=== PATIENT | male | born 1940 | race Caucasian/White ===

== ENCOUNTER → 2016-06-22 | Outpatient (CLI) | payer MEDICARE, SELFPAY ==
[~2016-06-22] MED LIST: AGGRENOX 25 MG1 EACH PO; DIABETA 5 MG TAB5 MG PO; FENOFIBRATE134 MG PO; LEVOTHYROXINE75 MCG PO; NORVASC 5 MG TAB5 MG PO; PROTONIX 40 MG40 M1 PO; VICTOZA 1818 MG/3 ML SC; VIT D
== END ==
LOC: KOH-I 15:37
DX: J40 Bronchitis, not specified as acute or chronic (principal); Z88.8 Allergy status to other drugs, medicaments and biological substances
CPT/HCPCS: 71020

== ENCOUNTER → 2016-06-24 | Outpatient (CLI) | payer MEDICARE, SELFPAY ==
[2016-06-24 10:07] LABS: RED BLOOD COUNT 2.44 M/UL (4.20-5.50); WHITE BLOOD COUNT 6.8 K/UL (4.5-11.0)
[2016-06-24 10:17] LABS: HEMOGLOBIN 6.9 gm/dl (14.0-17.5)
== END ==
LOC: OPSV 06-23 08:00
PROVIDERS: Internal Medicine Nephrology
DX: N18.3 Chronic kidney disease, stage 3 (moderate) (principal); D63.1 Anemia in chronic kidney disease; Z88.8 Allergy status to other drugs, medicaments and biological substances
CPT/HCPCS: 36415; 36430; 80048; 82728; 83540; 83550; 85027; 86850; 86900; 86901; 86920; J7050; P9016

== ENCOUNTER → 2016-06-29 | Outpatient (CLI) | payer MEDICARE, SELFPAY ==
[~2016-06-29] VITALS: Ht 180.3 cm; Wt 115.7 kg
[2016-06-29 08:25] LABS: HEMOGLOBIN 7.7 gm/dl (14.0-17.5); RED BLOOD COUNT 2.73 M/UL (4.20-5.50); WHITE BLOOD COUNT 6.2 K/UL (4.5-11.0)
== END ==
LOC: OPSV 08:00
PROVIDERS: Internal Medicine Nephrology
DX: N18.3 Chronic kidney disease, stage 3 (moderate) (principal); D63.1 Anemia in chronic kidney disease; D50.9 Iron deficiency anemia, unspecified; Z88.8 Allergy status to other drugs, medicaments and biological substances
CPT/HCPCS: 36415; 85027; 96365; 96366; J1756; J7030

== ENCOUNTER → 2016-07-07 | Outpatient (CLI) | payer MEDICARE, SELFPAY ==
[~2016-07-07] VITALS: Ht 180.3 cm; Wt 93.0 kg
[2016-07-07 08:17] LABS: HEMOGLOBIN 7.5 gm/dl (14.0-17.5); RED BLOOD COUNT 2.66 M/UL (4.20-5.50)
== END ==
LOC: OPSV 07:46
PROVIDERS: Internal Medicine Nephrology
DX: D50.9 Iron deficiency anemia, unspecified (principal); N18.3 Chronic kidney disease, stage 3 (moderate); D63.1 Anemia in chronic kidney disease
CPT/HCPCS: 36415; 80048; 82728; 83540; 83550; 85027; 96365; 96366; J1756; J7050

== ENCOUNTER → 2016-07-14 | Outpatient (CLI) | payer MEDICARE, SELFPAY ==
[~2016-07-14] VITALS: Ht 180.3 cm; Wt 93.0 kg
[2016-07-14 08:37] LABS: HEMOGLOBIN 7.3 gm/dl (14.0-17.5); RED BLOOD COUNT 2.56 M/UL (4.20-5.50); WHITE BLOOD COUNT 5.3 K/UL (4.5-11.0)
== END ==
LOC: OPSV 08:02
PROVIDERS: Internal Medicine Nephrology
DX: D50.9 Iron deficiency anemia, unspecified (principal); D63.1 Anemia in chronic kidney disease; N18.3 Chronic kidney disease, stage 3 (moderate)
CPT/HCPCS: 36415; 36430; 85027; 86850; 86900; 86901; 86920; J1756; J7050; P9016

== ENCOUNTER → 2016-07-21 | Outpatient (CLI) | payer MEDICARE, SELFPAY ==
[~2016-07-21] VITALS: Ht 180.3 cm; Wt 115.7 kg
[2016-07-21 08:23] LABS: HEMOGLOBIN 8.5 gm/dl (14.0-17.5); RED BLOOD COUNT 2.95 M/UL (4.20-5.50); WHITE BLOOD COUNT 5.5 K/UL (4.5-11.0)
== END ==
LOC: OPSV 07:47
PROVIDERS: Internal Medicine
DX: E11.9 Type 2 diabetes mellitus without complications (principal); D50.0 Iron deficiency anemia secondary to blood loss (chronic); R79.89 Other specified abnormal findings of blood chemistry
CPT/HCPCS: 36415; 80048; 83036; 85025; 96365; 96366; J1756; J7030

== ENCOUNTER → 2016-07-28 | Outpatient (CLI) | payer MEDICARE, SELFPAY ==
[~2016-07-28] VITALS: Ht 180.3 cm; Wt 115.7 kg
[2016-07-28 08:53] LABS: HEMOGLOBIN 9.7 gm/dl (14.0-17.5); RED BLOOD COUNT 3.33 M/UL (4.20-5.50); WHITE BLOOD COUNT 6.2 K/UL (4.5-11.0)
== END ==
LOC: OPSV 08:00
PROVIDERS: Internal Medicine Nephrology
DX: N18.3 Chronic kidney disease, stage 3 (moderate) (principal); D63.1 Anemia in chronic kidney disease; D50.9 Iron deficiency anemia, unspecified
CPT/HCPCS: 36415; 80048; 82728; 83540; 83550; 85027; 86039; 86225; 96365; 96366; J1756; J7030

== ENCOUNTER → 2016-08-04 | Outpatient (CLI) | payer MEDICARE, SELFPAY ==
[~2016-08-04] VITALS: Ht 180.3 cm; Wt 93.0 kg
[2016-08-04 08:09] LABS: HEMOGLOBIN 9.1 gm/dl (14.0-17.5); RED BLOOD COUNT 3.18 M/UL (4.20-5.50); WHITE BLOOD COUNT 5.6 K/UL (4.5-11.0)
== END ==
LOC: OPSV 07:20
PROVIDERS: Internal Medicine Nephrology
DX: N18.3 Chronic kidney disease, stage 3 (moderate) (principal); D63.1 Anemia in chronic kidney disease; D50.9 Iron deficiency anemia, unspecified
CPT/HCPCS: 85027; 96365; 96366; J1756; J7050

== ENCOUNTER → 2016-08-11 | Outpatient (CLI) | payer MEDICARE, SELFPAY ==
[~2016-08-11] VITALS: Ht 180.3 cm; Wt 115.7 kg
[2016-08-11 08:41] LABS: HEMOGLOBIN 10.3 gm/dl (14.0-17.5); RED BLOOD COUNT 3.5 M/UL (4.20-5.50); WHITE BLOOD COUNT 6.3 K/UL (4.5-11.0)
== END ==
LOC: OPSV 08:04
PROVIDERS: Internal Medicine Nephrology
DX: N18.3 Chronic kidney disease, stage 3 (moderate) (principal); D63.1 Anemia in chronic kidney disease; D50.9 Iron deficiency anemia, unspecified
CPT/HCPCS: 36415; 80048; 82728; 83540; 83550; 85027; 86160; 96365; 96366; J1756; J7030

== ENCOUNTER → 2016-08-18 | Outpatient (CLI) | payer MEDICARE, SELFPAY ==
[~2016-08-18] VITALS: Ht 180.3 cm; Wt 115.7 kg
== END ==
LOC: OPSV 08:00
DX: N18.3 Chronic kidney disease, stage 3 (moderate) (principal); D63.1 Anemia in chronic kidney disease; D50.9 Iron deficiency anemia, unspecified
CPT/HCPCS: 96365; 96366; J1756; J7030

== ENCOUNTER → 2016-08-25 | Outpatient (CLI) | payer MEDICARE ==
[2016-08-25 08:17] LABS: HEMOGLOBIN 12.8 gm/dl (14.0-17.5); RED BLOOD COUNT 4.29 M/UL (4.20-5.50)
== END ==
LOC: OPSV 07:56
PROVIDERS: Internal Medicine Nephrology
DX: D64.9 Anemia, unspecified (principal)
CPT/HCPCS: 36415; 85027

== ENCOUNTER → 2016-09-08 | Outpatient (CLI) | payer MEDICARE ==
[2016-09-08 08:45] LABS: RED BLOOD COUNT 4.38 M/UL (4.20-5.50)
== END ==
LOC: OPSV 08:00
PROVIDERS: Internal Medicine Nephrology
DX: N18.3 Chronic kidney disease, stage 3 (moderate) (principal); D63.1 Anemia in chronic kidney disease
CPT/HCPCS: 36415; 80048; 82728; 83540; 83550; 85027

== ENCOUNTER → 2016-09-22 | Outpatient (CLI) | payer MEDICARE ==
[2016-09-22 08:30] LABS: HEMOGLOBIN 13.5 gm/dl (14.0-17.5); RED BLOOD COUNT 4.51 M/UL (4.20-5.50); WHITE BLOOD COUNT 5.5 K/UL (4.5-11.0)
== END ==
LOC: OPSV 08:00
PROVIDERS: Internal Medicine Nephrology
DX: N18.3 Chronic kidney disease, stage 3 (moderate) (principal); D63.1 Anemia in chronic kidney disease; D50.9 Iron deficiency anemia, unspecified
CPT/HCPCS: 36415; 85027

== ENCOUNTER → 2016-09-28 | Outpatient (CLI) | payer MEDICARE, OTHER | LOC: US 08:10 → LAB 08:10 → US 09:00 | DX: Z11.59 Encounter for screening for other viral diseases (principal); K31.819 Angiodysplasia of stomach and duodenum without bleeding; D50.0 Iron deficiency anemia secondary to blood loss (chronic); R53.83 Other fatigue; R16.0 Hepatomegaly, not elsewhere classified | CPT/HCPCS: 36415; 76705; 80074; 80076 ==

== ENCOUNTER → 2016-10-06 | Outpatient (CLI) | payer MEDICARE, OTHER ==
[~2016-10-06] VITALS: Ht 180.3 cm; Wt 115.7 kg
[2016-10-06 07:57] LABS: HEMOGLOBIN 13.3 gm/dl (14.0-17.5); RED BLOOD COUNT 4.5 M/UL (4.20-5.50); WHITE BLOOD COUNT 6.1 K/UL (4.5-11.0)
== END ==
LOC: OPSV 07:24
PROVIDERS: Internal Medicine Nephrology
DX: N18.3 Chronic kidney disease, stage 3 (moderate) (principal); D50.9 Iron deficiency anemia, unspecified
CPT/HCPCS: 36415; 80048; 82728; 83540; 83550; 85027; 96365; 96366; J1756; J7050

== ENCOUNTER → 2016-10-11 | Outpatient (CLI) | payer MEDICARE | LOC: LAB 16:12 | DX: E11.65 Type 2 diabetes mellitus with hyperglycemia (principal) | CPT/HCPCS: 36415; 83036 ==

== ENCOUNTER → 2016-10-13 | Outpatient (CLI) | payer MEDICARE, OTHER ==
[~2016-10-13] VITALS: Ht 180.3 cm; Wt 93.0 kg
== END ==
LOC: OPSV 07:47
DX: N18.3 Chronic kidney disease, stage 3 (moderate) (principal); D50.9 Iron deficiency anemia, unspecified
CPT/HCPCS: 96365; 96366; J1756; J7030

== ENCOUNTER → 2020-04-20 | Outpatient (CLI) | payer MEDICARE, OTHER ==
[~2020-04-20] VITALS: Ht 180.3 cm; Wt 108.9 kg
[~2020-04-20] MED LIST changes: +COLACE 100MG C100 MG PO; +CYANOCOBAL1000 MCG/1 INJ; +ELIQUIS2.5 MG PO; +FEOSOL325 MG PO; +GLUCOTROL XL 5 M5 MG PO; +LIVALO2 MG PO; +NORCO 5-325 TA1 EACH PO; +PRAVACHOL20 MG PO; +TOUJEO MAX300 UNIT/1 SQ; +TRILIPIX135 MG PO; +VITAMIN C500 M4 PO; +VITAMIN D400 UNI2 PO; +toujeo
[2020-04-20 07:39] LABS: HEMOGLOBIN 7.5 gm/dl (14.0-17.5); RED BLOOD COUNT 3.33 M/UL (4.20-5.50); WHITE BLOOD COUNT 5.4 K/UL (4.5-11.0)
== END ==
LOC: OPSV 06:55
PROVIDERS: Internal Medicine Nephrology
DX: N18.9 Chronic kidney disease, unspecified (principal); D63.1 Anemia in chronic kidney disease
CPT/HCPCS: 36415; 82270; 85027; 96365; J1439; J7030

== ENCOUNTER → 2020-04-27 | Outpatient (CLI) | payer MEDICARE, OTHER ==
[~2020-04-27] VITALS: Ht 180.3 cm; Wt 108.9 kg
[2020-04-27 08:15] LABS: HEMOGLOBIN 8.3 gm/dl (14.0-17.5); RED BLOOD COUNT 3.31 M/UL (4.20-5.50); WHITE BLOOD COUNT 4.5 K/UL (4.5-11.0)
== END ==
LOC: OPSV 07:24
PROVIDERS: Internal Medicine Nephrology
DX: N18.30 Chronic kidney disease, stage 3 unspecified (principal); D63.1 Anemia in chronic kidney disease
CPT/HCPCS: 36415; 80048; 82728; 83540; 83550; 85027; 96365; J1439

== ENCOUNTER → 2020-05-07 | Outpatient (CLI) | payer MEDICARE, OTHER ==
[~2020-05-07] VITALS: Ht 180.3 cm; Wt 108.9 kg
[2020-05-07 07:49] LABS: HEMOGLOBIN 9.5 gm/dl (14.0-17.5); RED BLOOD COUNT 3.54 M/UL (4.20-5.50); WHITE BLOOD COUNT 5.4 K/UL (4.5-11.0)
== END ==
LOC: OPSV 07:00
PROVIDERS: Internal Medicine Nephrology
DX: N18.30 Chronic kidney disease, stage 3 unspecified (principal); D63.1 Anemia in chronic kidney disease
CPT/HCPCS: 36415; 85027; 96365; J1439; J7030

== ENCOUNTER → 2020-05-22 | Outpatient (CLI) | payer MEDICARE, OTHER ==
[~2020-05-22] VITALS: Ht 180.3 cm; Wt 108.9 kg
== END ==
LOC: OPSV 05-21 07:00
DX: D50.9 Iron deficiency anemia, unspecified (principal)
CPT/HCPCS: 96365; J1439; J7030

== ENCOUNTER → 2020-05-26 | Outpatient (CLI) | payer MEDICARE, OTHER ==
[2020-05-26 10:13] LABS: RED BLOOD COUNT 3.77 M/UL (4.20-5.50); WHITE BLOOD COUNT 5.9 K/UL (4.5-11.0)
== END ==
LOC: OPSV 08:00
PROVIDERS: Internal Medicine
DX: N18.30 Chronic kidney disease, stage 3 unspecified (principal); D63.1 Anemia in chronic kidney disease
CPT/HCPCS: 36415; 80048; 82728; 83540; 83550; 85027

== ENCOUNTER → 2020-06-22 | Outpatient (CLI) | payer MEDICARE, OTHER ==
[~2020-06-22] VITALS: Ht 180.3 cm; Wt 108.9 kg
[2020-06-22 09:23] LABS: HEMOGLOBIN 10.1 gm/dl (14.0-17.5); RED BLOOD COUNT 3.45 M/UL (4.20-5.50); WHITE BLOOD COUNT 5.1 K/UL (4.5-11.0)
== END ==
LOC: OPSV 08:00
PROVIDERS: Internal Medicine Nephrology
DX: N18.30 Chronic kidney disease, stage 3 unspecified (principal); D63.1 Anemia in chronic kidney disease
CPT/HCPCS: 36415; 80048; 82728; 83540; 83550; 85027; 96365; J1439; J7030

== ENCOUNTER → 2020-07-06 | Outpatient (CLI) | payer MEDICARE, OTHER ==
[2020-07-06 09:41] LABS: HEMOGLOBIN 10.9 gm/dl (14.0-17.5); RED BLOOD COUNT 3.57 M/UL (4.20-5.50); WHITE BLOOD COUNT 4.7 K/UL (4.5-11.0)
== END ==
LOC: OPSV 09:00
PROVIDERS: Internal Medicine Nephrology
DX: N18.30 Chronic kidney disease, stage 3 unspecified (principal); D63.1 Anemia in chronic kidney disease
CPT/HCPCS: 36415; 85027

== ENCOUNTER → 2020-07-21 | Outpatient (CLI) | payer MEDICARE, OTHER ==
[2020-07-21 08:22] LABS: RED BLOOD COUNT 3.58 M/UL (4.20-5.50); WHITE BLOOD COUNT 4.1 K/UL (4.5-11.0)
== END ==
LOC: OPSV 07:00
PROVIDERS: Internal Medicine Nephrology
DX: N18.30 Chronic kidney disease, stage 3 unspecified (principal); N18.9 Chronic kidney disease, unspecified
CPT/HCPCS: 36415; 80048; 82728; 83540; 83550; 85027

== ENCOUNTER → 2020-08-06 | Outpatient (CLI) | payer MEDICARE, OTHER ==
[2020-08-06 08:50] LABS: HEMOGLOBIN 10.9 gm/dl (14.0-17.5); RED BLOOD COUNT 3.59 M/UL (4.20-5.50); WHITE BLOOD COUNT 5.6 K/UL (4.5-11.0)
== END ==
LOC: OPSV 08:00
PROVIDERS: Internal Medicine Nephrology
DX: N18.30 Chronic kidney disease, stage 3 unspecified (principal); D63.1 Anemia in chronic kidney disease
CPT/HCPCS: 36415; 85027

== ENCOUNTER → 2020-08-21 | Outpatient (CLI) | payer MEDICARE, OTHER | LOC: KOH-I 15:59 | DX: M25.551 Pain in right hip (principal); W19.XXXA Unspecified fall, initial encounter; M53.3 Sacrococcygeal disorders, not elsewhere classified | CPT/HCPCS: 73502 ==

== ENCOUNTER → 2020-08-25 | Outpatient (CLI) | payer MEDICARE, OTHER ==
[2020-08-25 09:56] LABS: HEMOGLOBIN 10.3 gm/dl (14.0-17.5); RED BLOOD COUNT 3.46 M/UL (4.20-5.50); WHITE BLOOD COUNT 5.7 K/UL (4.5-11.0)
== END ==
LOC: OPSV 09:16
PROVIDERS: Internal Medicine Nephrology
DX: N18.30 Chronic kidney disease, stage 3 unspecified (principal); D63.1 Anemia in chronic kidney disease
CPT/HCPCS: 36415; 80048; 82728; 83540; 83550; 85027; 96365; J1439

== ENCOUNTER → 2020-09-07 | Outpatient (CLI) | payer MEDICARE, OTHER ==
[2020-09-07 09:41] LABS: HEMOGLOBIN 10.3 gm/dl (14.0-17.5); RED BLOOD COUNT 3.45 M/UL (4.20-5.50); WHITE BLOOD COUNT 5.5 K/UL (4.5-11.0)
== END ==
LOC: OPSV 09:00
PROVIDERS: Internal Medicine Nephrology
DX: N18.30 Chronic kidney disease, stage 3 unspecified (principal); D63.1 Anemia in chronic kidney disease
CPT/HCPCS: 36415; 85027

== ENCOUNTER → 2020-09-25 | Outpatient (CLI) | payer MEDICARE, OTHER ==
[~2020-09-25] VITALS: Ht 180.3 cm; Wt 108.9 kg
[2020-09-25 07:54] LABS: HEMOGLOBIN 9.1 gm/dl (14.0-17.5); RED BLOOD COUNT 3.12 M/UL (4.20-5.50); WHITE BLOOD COUNT 4.9 K/UL (4.5-11.0)
== END ==
LOC: OPSV 07:00
PROVIDERS: Internal Medicine Nephrology
DX: N18.30 Chronic kidney disease, stage 3 unspecified (principal); D63.1 Anemia in chronic kidney disease
CPT/HCPCS: 36415; 80048; 82728; 83540; 83550; 85027; 96365; J1439

== ENCOUNTER → 2020-10-02 | Outpatient (CLI) | payer MEDICARE, OTHER ==
[~2020-10-02] VITALS: Ht 180.3 cm; Wt 108.9 kg
== END ==
LOC: OPSV 09:00
DX: N18.30 Chronic kidney disease, stage 3 unspecified (principal); D63.1 Anemia in chronic kidney disease
CPT/HCPCS: 96372; Q5105

== ENCOUNTER → 2020-10-09 | Outpatient (CLI) | payer MEDICARE, OTHER ==
[2020-10-09 09:29] LABS: HEMOGLOBIN 10.1 gm/dl (14.0-17.5); RED BLOOD COUNT 3.36 M/UL (4.20-5.50); WHITE BLOOD COUNT 5.5 K/UL (4.5-11.0)
== END ==
LOC: OPSV 09:00
PROVIDERS: Internal Medicine Nephrology
DX: N18.30 Chronic kidney disease, stage 3 unspecified (principal); D63.1 Anemia in chronic kidney disease
CPT/HCPCS: 36415; 85027

== ENCOUNTER → 2020-10-22 | Outpatient (CLI) | payer MEDICARE, OTHER ==
[~2020-10-22] VITALS: Ht 180.3 cm; Wt 108.9 kg
[2020-10-22 09:50] LABS: HEMOGLOBIN 10.5 gm/dl (14.0-17.5); RED BLOOD COUNT 3.59 M/UL (4.20-5.50); WHITE BLOOD COUNT 9.7 K/UL (4.5-11.0)
== END ==
LOC: OPSV 08:00
PROVIDERS: Internal Medicine Nephrology
DX: N18.30 Chronic kidney disease, stage 3 unspecified (principal); D63.1 Anemia in chronic kidney disease
CPT/HCPCS: 36415; 80048; 82728; 83540; 83550; 85027; 96365; J1439

== ENCOUNTER → 2020-11-16 | Outpatient (CLI) | payer MEDICARE, OTHER ==
[~2020-11-16] VITALS: Ht 180.3 cm; Wt 108.9 kg
[2020-11-16 07:59] LABS: HEMOGLOBIN 10.8 gm/dl (14.0-17.5); RED BLOOD COUNT 3.78 M/UL (4.20-5.50); WHITE BLOOD COUNT 6.1 K/UL (4.5-11.0)
== END ==
LOC: OPSV 07:00
PROVIDERS: Internal Medicine Nephrology
DX: N18.30 Chronic kidney disease, stage 3 unspecified (principal); D63.1 Anemia in chronic kidney disease
CPT/HCPCS: 36415; 80048; 82728; 83540; 83550; 85027; 96365; J1439; J7030

== ENCOUNTER → 2020-12-07 | Outpatient (CLI) | payer MEDICARE, OTHER ==
[2020-12-07 10:36] LABS: HEMOGLOBIN 10.7 gm/dl (14.0-17.5); RED BLOOD COUNT 3.6 M/UL (4.20-5.50); WHITE BLOOD COUNT 5.6 K/UL (4.5-11.0)
== END ==
LOC: OPSV 09:50
PROVIDERS: Internal Medicine Nephrology
DX: N18.30 Chronic kidney disease, stage 3 unspecified (principal); D63.1 Anemia in chronic kidney disease
CPT/HCPCS: 36415; 85027

== ENCOUNTER → 2020-12-23 | Outpatient (CLI) | payer MEDICARE, OTHER ==
[~2020-12-23] VITALS: Ht 180.3 cm; Wt 108.9 kg
[2020-12-23 10:51] LABS: HEMOGLOBIN 10.7 gm/dl (14.0-17.5); RED BLOOD COUNT 3.63 M/UL (4.20-5.50); WHITE BLOOD COUNT 8.8 K/UL (4.5-11.0)
== END ==
LOC: OPSV 10:00
PROVIDERS: Internal Medicine Nephrology
DX: N18.30 Chronic kidney disease, stage 3 unspecified (principal); D63.1 Anemia in chronic kidney disease
CPT/HCPCS: 36415; 80048; 82728; 83540; 83550; 85027; 96365; J1439; J7030

== ENCOUNTER → 2021-01-06 | Outpatient (CLI) | payer MEDICARE, OTHER ==
[~2021-01-06] VITALS: Ht 180.3 cm; Wt 108.9 kg
[2021-01-06 10:32] LABS: HEMOGLOBIN 8.7 gm/dl (14.0-17.5); RED BLOOD COUNT 3.09 M/UL (4.20-5.50); WHITE BLOOD COUNT 6.4 K/UL (4.5-11.0)
== END ==
LOC: OPSV 10:00
PROVIDERS: Internal Medicine Nephrology
DX: N18.30 Chronic kidney disease, stage 3 unspecified (principal); D63.1 Anemia in chronic kidney disease
CPT/HCPCS: 36415; 85027; 96372; Q5106

== ENCOUNTER → 2021-01-20 | Outpatient (CLI) | payer MEDICARE, OTHER ==
[2021-01-20 12:28] LABS: HEMOGLOBIN 7.1 gm/dl (14.0-17.5); RED BLOOD COUNT 2.45 M/UL (4.20-5.50); WHITE BLOOD COUNT 6.8 K/UL (4.5-11.0)
== END ==
LOC: LAB 11:23
PROVIDERS: Nurse Practitioner Family
DX: N17.9 Acute kidney failure, unspecified (principal); D50.0 Iron deficiency anemia secondary to blood loss (chronic); D51.0 Vitamin B12 deficiency anemia due to intrinsic factor deficiency; I10 Essential (primary) hypertension
CPT/HCPCS: 36415; 80053; 85025

== ENCOUNTER → 2021-01-21 | Outpatient (CLI) | payer MEDICARE, OTHER | LOC: OPSV 16:23 → LAB 16:23 | DX: D50.0 Iron deficiency anemia secondary to blood loss (chronic) (principal) | CPT/HCPCS: 86850; 86900; 86901; 86920 ==

== ENCOUNTER → 2021-01-22 | Outpatient (CLI) | payer MEDICARE, OTHER | LOC: OPSV 07:37 | DX: D50.0 Iron deficiency anemia secondary to blood loss (chronic) (principal); R50.9 Fever, unspecified | CPT/HCPCS: 36415; 36430; 81001 ==

== ENCOUNTER → 2021-02-04 | Outpatient (CLI) | payer MEDICARE, OTHER ==
[~2021-02-04] VITALS: Ht 180.3 cm; Wt 108.9 kg
[~2021-02-04] MED LIST changes: +ATORVASTATIN CA10 MG PO; +CIPROFLOXACIN250 MG PO; +DRISDOL1250 MCG PO; +MUPIROCIN22 GM TOP; +PREDNISONE20 MG PO; +PRESERVISION A1 EAC2 PO
[2021-02-04 10:33] LABS: HEMOGLOBIN 7.4 gm/dl (14.0-17.5); RED BLOOD COUNT 2.63 M/UL (4.20-5.50)
== END ==
LOC: OPSV 09:00
PROVIDERS: Internal Medicine Nephrology
DX: N18.9 Chronic kidney disease, unspecified (principal); D63.1 Anemia in chronic kidney disease; N17.9 Acute kidney failure, unspecified
CPT/HCPCS: 36415; 80048; 82728; 83540; 83550; 85027; 96365; J1756

== ENCOUNTER 2021-02-09 12:16 | Outpatient (CLI) | payer MEDICARE, OTHER ==
[~2021-02-09] VITALS: Ht 180.3 cm; Wt 108.9 kg
[~2021-02-09 12:16] MED LIST changes: -ATORVASTATIN CA10 MG PO; -CIPROFLOXACIN250 MG PO; -MUPIROCIN22 GM TOP; -PREDNISONE20 MG PO; -PRESERVISION A1 EAC2 PO
[2021-02-09] MEDS ORDERED: CIPROFLOXACIN250 MG PO (18:58)
[2021-02-09] MEDS ORDERED: MUPIROCIN22 GM TOP (18:59)
[2021-02-09] MEDS ORDERED: PREDNISONE20 MG PO (19:00)
[2021-02-09] MEDS ORDERED: ATORVASTATIN CA10 MG PO (19:00)
[2021-02-09] MEDS ORDERED: PRESERVISION A1 EAC2 PO (19:00)
== END 2021-02-09 20:11 | disposition home or self-care (01) ==
LOC: OPSV 12:16 → MED SURG 4 16:18 → OPSV 20:11
DX: D50.0 Iron deficiency anemia secondary to blood loss (chronic) (principal); K92.1 Melena
CPT/HCPCS: 36415; 36430; 81001; 85025; 86850; 86900; 86901; 86920; 87077; 87086; 87186; P9016

== ENCOUNTER → 2021-02-12 | Outpatient (CLI) | payer MEDICARE, OTHER ==
[~2021-02-12] VITALS: Ht 180.3 cm; Wt 108.9 kg
[~2021-02-12] MED LIST changes: +ATORVASTATIN CA10 MG PO; +CIPROFLOXACIN250 MG PO; +MUPIROCIN22 GM TOP; +PREDNISONE20 MG PO; +PRESERVISION A1 EAC2 PO
== END ==
LOC: OPSV 11:00
DX: N18.32 Chronic kidney disease, stage 3b (principal); D63.1 Anemia in chronic kidney disease; N17.9 Acute kidney failure, unspecified
CPT/HCPCS: 36415; 96366; J1756

== ENCOUNTER → 2021-02-19 | Outpatient (CLI) | payer MEDICARE, OTHER | LOC: OPSV 02-18 12:00 | DX: N18.9 Chronic kidney disease, unspecified (principal); D63.1 Anemia in chronic kidney disease | CPT/HCPCS: 96365; J1756 ==

== ENCOUNTER → 2021-02-22 | Outpatient (CLI) | payer MEDICARE, OTHER ==
[~2021-02-22] VITALS: Ht 180.3 cm; Wt 108.9 kg
[~2021-02-22] MED LIST changes: +CARAFATE 1 GM TA1 GM PO; +LIVALO4 MG PO
[2021-02-22 08:56] LABS: HEMOGLOBIN 7.8 gm/dl (14.0-17.5); RED BLOOD COUNT 2.76 M/UL (4.20-5.50); WHITE BLOOD COUNT 9.8 K/UL (4.5-11.0)
== END ==
LOC: OPSV 08:16
PROVIDERS: Internal Medicine Nephrology
DX: N18.9 Chronic kidney disease, unspecified (principal); D63.1 Anemia in chronic kidney disease; D50.0 Iron deficiency anemia secondary to blood loss (chronic)
CPT/HCPCS: 36415; 80048; 82728; 83540; 83550; 85027; 96365; J1756

== ENCOUNTER 2021-02-24 13:25 | Inpatient (IN) | payer MEDICARE, OTHER ==
[~2021-02-24] VITALS: Ht 180.3 cm; Wt 106.6 kg
[~2021-02-24 13:25] MED LIST changes: -CARAFATE 1 GM TA1 GM PO; -LIVALO4 MG PO
[2021-02-24] MEDS ORDERED: FENOFIBRATE134 MG PO (15:43)
[2021-02-24] MEDS ORDERED: CARAFATE 1 GM TA1 GM PO (15:43)
[2021-02-24 16:42] LABS: HEMOGLOBIN 7.7 gm/dl (14.0-17.5); RED BLOOD COUNT 2.74 M/UL (4.20-5.50); WHITE BLOOD COUNT 9.9 K/UL (4.5-11.0)
[2021-02-24] MEDS ORDERED: LIVALO4 MG PO (16:53)
[2021-02-25 08:00] LABS: WHITE BLOOD COUNT 7.7 K/UL (4.5-11.0)
[2021-02-25 08:08] LABS: HEMOGLOBIN 6.4 gm/dl (14.0-17.5); RED BLOOD COUNT 2.36 M/UL (4.20-5.50)
--- NOTE | 2021-02-25 08:36 | NUR ---
[facility] CALLED TO
[2021-02-25 19:47] LABS: HEMOGLOBIN 8.8 gm/dl (14.0-17.5)
[2021-02-26 08:35] LABS: HEMOGLOBIN 9.1 gm/dl (14.0-17.5); WHITE BLOOD COUNT 6.7 K/UL (4.5-11.0)
[2021-02-26 08:38] LABS: RED BLOOD COUNT 3.12 M/UL (4.20-5.50)
[2021-02-26 11:14] LABS: CREATININE, URINE 55.9 mg/dL (Not Estab.)
[2021-02-27 06:18] LABS: HEMOGLOBIN 7.7 gm/dl (14.0-17.5); WHITE BLOOD COUNT 5.6 K/UL (4.5-11.0)
[2021-02-27 06:29] LABS: RED BLOOD COUNT 2.73 M/UL (4.20-5.50)
[2021-02-27 10:13] LABS: CREATININE, URINE 45.2 mg/dL (Not Estab.)
[2021-02-28 08:32] LABS: HEMOGLOBIN 7.3 gm/dl (14.0-17.5); RED BLOOD COUNT 2.59 M/UL (4.20-5.50)
[2021-03-01 07:51] LABS: HEMOGLOBIN 8.2 gm/dl (14.0-17.5)
[2021-03-01 07:54] LABS: RED BLOOD COUNT 2.97 M/UL (4.20-5.50); WHITE BLOOD COUNT 6.5 K/UL (4.5-11.0)
[2021-03-02 07:11] LABS: RED BLOOD COUNT 2.82 M/UL (4.20-5.50)
[2021-03-03 06:59] LABS: HEMOGLOBIN 7.8 gm/dl (14.0-17.5); RED BLOOD COUNT 2.73 M/UL (4.20-5.50); WHITE BLOOD COUNT 5.8 K/UL (4.5-11.0)
== END 2021-03-03 13:37 | disposition home or self-care (01) | DRG 682 ==
LOC: MED SURG 4 13:25
PROVIDERS: Internal Medicine; Internal Medicine Nephrology; ADMIT Internal Medicine
PROC: 30233N1 Transfusion of Nonautologous Red Blood Cells into Peripheral Vein, Percutaneous Approach (ICD-10-PCS; principal; 2021-02-25)
DX: N17.9 Acute kidney failure, unspecified (principal); J18.9 Pneumonia, unspecified organism; E87.2 Acidosis; D62 Acute posthemorrhagic anemia; I12.9 Hypertensive chronic kidney disease with stage 1 through stage 4 chronic kidney disease, or unspecified chronic kidney disease; N13.6 Pyonephrosis; M34.9 Systemic sclerosis, unspecified; N18.30 Chronic kidney disease, stage 3 unspecified; E03.9 Hypothyroidism, unspecified; D63.1 Anemia in chronic kidney disease; K31.819 Angiodysplasia of stomach and duodenum without bleeding; D50.9 Iron deficiency anemia, unspecified; E11.22 Type 2 diabetes mellitus with diabetic chronic kidney disease; R53.81 Other malaise; Z79.899 Other long term (current) drug therapy
CPT/HCPCS: 36415; 36430; 70450; 71045; 71046; 76857; 80048; 80053; 80069; 81001; 82043; 82436; 82570; 82728; 82803; 82962; 83540; 83550; 84133; 84156; 84300; 84439; 84443; 85014; 85018; 85025; 85027; 85652; 86140; 86850; 86900; 86901; 86920; 87040; 87278; 89050; 94640; 94760; 96365; J0456; J0696; J1644; J1756; J7030; J7050; J7120; P9016; P9047; U0002

== ENCOUNTER 2021-03-05 13:46 | Emergency (ER) | payer MEDICARE, OTHER ==
[~2021-03-05 13:46] MED LIST changes: +CARAFATE 1 GM TA1 GM PO; +LIVALO4 MG PO
[2021-03-05 14:45] LABS: RED BLOOD COUNT 2.73 M/UL (4.20-5.50); WHITE BLOOD COUNT 5.2 K/UL (4.5-11.0)
== END 2021-03-05 15:40 | disposition home or self-care (01) ==
LOC: ER1 13:46
PROVIDERS: Preventive Medicine Occupational Medicine
DX: R53.83 Other fatigue (principal); E11.22 Type 2 diabetes mellitus with diabetic chronic kidney disease; N18.9 Chronic kidney disease, unspecified
CPT/HCPCS: 71045; 80053; 82550; 82553; 83690; 83874; 83880; 84484; 85025; 85652; 86140; 93005; 94664; 94760; 99285; J7030

== ENCOUNTER → 2021-03-08 | Outpatient (CLI) | payer MEDICARE, OTHER ==
[~2021-03-08] VITALS: Ht 180.3 cm; Wt 108.9 kg
== END ==
LOC: OPSV 10:55 → LAB 10:55
DX: N18.9 Chronic kidney disease, unspecified (principal); D63.1 Anemia in chronic kidney disease
CPT/HCPCS: 96365; J1756

== ENCOUNTER → 2021-03-11 | Outpatient (CLI) | payer MEDICARE, OTHER ==
[2021-03-11 12:49] LABS: HEMOGLOBIN 9.4 gm/dl (14.0-17.5); RED BLOOD COUNT 3.14 M/UL (4.20-5.50); WHITE BLOOD COUNT 6.2 K/UL (4.5-11.0)
== END ==
LOC: OPSV 08:00
PROVIDERS: Internal Medicine
DX: D50.0 Iron deficiency anemia secondary to blood loss (chronic) (principal)
CPT/HCPCS: 36415; 36430; 85027; J7050

== ENCOUNTER → 2021-03-15 | Outpatient (CLI) | payer MEDICARE, OTHER ==
[~2021-03-15] VITALS: Ht 180.3 cm; Wt 108.9 kg
== END ==
LOC: OPSV 11:37
DX: N18.9 Chronic kidney disease, unspecified (principal); D63.1 Anemia in chronic kidney disease; D50.0 Iron deficiency anemia secondary to blood loss (chronic)
CPT/HCPCS: 96365; J1756

== ENCOUNTER 2021-03-21 23:08 | Inpatient (IN) | payer MEDICARE, OTHER ==
[~2021-03-21] VITALS: Ht 180.3 cm; Wt 111.1 kg
[~2021-03-21 23:08] MED LIST changes: -VICTOZA 1818 MG/3 ML SC; +VICTOZA 1818 MG/3 ML SQ
[2021-03-22 00:58] LABS: HEMOGLOBIN 7.6 gm/dl (14.0-17.5); RED BLOOD COUNT 2.61 M/UL (4.20-5.50); WHITE BLOOD COUNT 7.1 K/UL (4.5-11.0)
[2021-03-22 01:19] LABS: BUN/CREATININE RATIO 18 (0-10)
[2021-03-22] MEDS ORDERED: CARAFATE1 GM PO (10:01)
[2021-03-22] MEDS ORDERED: MULTIVITAMIN1 EACH PO (10:02)
[2021-03-22] MEDS ORDERED: IPRAT-ALBUT 0.5-3 ML INH (10:02)
[2021-03-22] MEDS ORDERED: VITAMIN C250 MG PO (10:03)
[2021-03-22 13:17] LABS: HEMOGLOBIN 8.6 gm/dl (14.0-17.5); WHITE BLOOD COUNT 7.9 K/UL (4.5-11.0)
[2021-03-22 13:19] LABS: RED BLOOD COUNT 2.97 M/UL (4.20-5.50)
[2021-03-22] MEDS ORDERED: KENALOG CREAM 015 GM TOP (22:22)
--- NOTE | 2021-03-22 23:04 | NUR ---
DR. OLIVAS HAS A WRITTEN ORDER TO CONTINUE HOME MEDS PER THE LIST FROM HER OFFICE. BY THE TIME SHIFT CHANGE HER OFFICE WAS CLOSED. I HAVE LOOKED AT HIS OLD MED LIST AND COMPARED IT TO THE MED LIST THE GRANDDAUGHTER GAVE ME AND THERE ARE SOME MEDS NOT THE SAME. SINCE I CAN SEE THAT HIS NEB TREATMENTS WAS FILLED ON 03/05/[address] OLIVAS I AM GOING TO START THEM. HIS MED SCALE INSULIN, INVANZ, TYLENOL, AND FLUIDS, WELL HIS MORNING LABS ARE IN. THE DAYSHIFT WILL CALL SOON THE OFFICE OPENS IN THE MORNING TO GET THE CURRENT LIST OF MEDICATIONS. I CALLED HOUSE AND LET HER KNOW THE SITUATION.
[2021-03-23 07:02] LABS: RED BLOOD COUNT 2.86 M/UL (4.20-5.50); WHITE BLOOD COUNT 7.1 K/UL (4.5-11.0)
[2021-03-24 08:32] LABS: HEMOGLOBIN 8.4 gm/dl (14.0-17.5); RED BLOOD COUNT 2.95 M/UL (4.20-5.50); WHITE BLOOD COUNT 6.9 K/UL (4.5-11.0)
[2021-03-25 07:57] LABS: HEMOGLOBIN 8.3 gm/dl (14.0-17.5); WHITE BLOOD COUNT 5.8 K/UL (4.5-11.0)
[2021-03-26 06:01] LABS: HEMOGLOBIN 7.5 gm/dl (14.0-17.5); RED BLOOD COUNT 2.73 M/UL (4.20-5.50); WHITE BLOOD COUNT 5.7 K/UL (4.5-11.0)
--- NOTE | 2021-03-26 06:23 | NUR ---
hgb results 7.5. There is a written order to transfuse 1 unit if hgb is below 8. Will get consent ready to be signed, tubing ready and verify iv.
[2021-03-27 09:26] LABS: HEMOGLOBIN 8.9 gm/dl (14.0-17.5); WHITE BLOOD COUNT 6.1 K/UL (4.5-11.0)
[2021-03-27 09:29] LABS: RED BLOOD COUNT 3.16 M/UL (4.20-5.50)
[2021-03-28 08:43] LABS: HEMOGLOBIN 9.2 gm/dl (14.0-17.5); RED BLOOD COUNT 3.33 M/UL (4.20-5.50); WHITE BLOOD COUNT 7.1 K/UL (4.5-11.0)
--- NOTE | 2021-03-28 10:25 | NUR ---
PATIENT HAD KIDNEY U/S THIS AM
[2021-03-28] MEDS ORDERED: SODIUM BICARBO650 M1 PO (14:41)
[2021-03-28] MEDS ORDERED: AMLODIPINE BESYL5 MG PO (14:41)
[2021-03-28] MEDS ORDERED: MACROBID 100 M100 MG PO (14:41)
== END 2021-03-28 15:35 | disposition home or self-care (01) | DRG 377 ==
LOC: ER1 23:08 → CDU 03-22 06:32 → M/S 03-22 06:32
PROVIDERS: Family Medicine; Internal Medicine; Internal Medicine Nephrology; ADMIT Internal Medicine
PROC: 30233N1 Transfusion of Nonautologous Red Blood Cells into Peripheral Vein, Percutaneous Approach (ICD-10-PCS; principal; 2021-03-22)
DX: K31.811 Angiodysplasia of stomach and duodenum with bleeding (principal); N17.0 Acute kidney failure with tubular necrosis; D62 Acute posthemorrhagic anemia; N18.4 Chronic kidney disease, stage 4 (severe); N30.00 Acute cystitis without hematuria; Z16.22 Resistance to vancomycin related antibiotics; E87.2 Acidosis; I12.9 Hypertensive chronic kidney disease with stage 1 through stage 4 chronic kidney disease, or unspecified chronic kidney disease; E11.22 Type 2 diabetes mellitus with diabetic chronic kidney disease; E03.9 Hypothyroidism, unspecified; D63.1 Anemia in chronic kidney disease; Z20.822 Contact with and (suspected) exposure to COVID-19; D50.9 Iron deficiency anemia, unspecified; E11.65 Type 2 diabetes mellitus with hyperglycemia; B96.1 Klebsiella pneumoniae [K. pneumoniae] as the cause of diseases classified elsewhere; Z87.440 Personal history of urinary (tract) infections; Z79.899 Other long term (current) drug therapy; Z79.4 Long term (current) use of insulin; Z79.52 Long term (current) use of systemic steroids
CPT/HCPCS: 0240U; 36415; 36600; 71045; 71046; 80048; 80053; 81001; 82550; 82553; 82803; 82962; 83605; 83735; 83874; 83880; 84484; 85018; 85025; 85027; 86850; 86900; 86901; 86920; 87040; 87077; 87086; 87186; 93005; 94640; 94664; 94760; 96374; 96375; 99285; J1335; J1756; P9016; P9047

== ENCOUNTER → 2021-03-30 | Outpatient (CLI) | payer MEDICARE, OTHER ==
[~2021-03-30] MED LIST changes: +AMLODIPINE BESYL5 MG PO; +CARAFATE1 GM PO; +IPRAT-ALBUT 0.5-3 ML INH; +KENALOG CREAM 015 GM TOP; +MACROBID 100 M100 MG PO; +MULTIVITAMIN1 EACH PO; +SODIUM BICARBO650 M1 PO; +VITAMIN C250 MG PO
[2021-03-30 13:10] LABS: HEMOGLOBIN 8.1 gm/dl (14.0-17.5); WHITE BLOOD COUNT 5.4 K/UL (4.5-11.0)
[2021-03-30 13:12] LABS: RED BLOOD COUNT 2.87 M/UL (4.20-5.50)
== END ==
LOC: LAB 11:07
PROVIDERS: Internal Medicine
DX: D50.0 Iron deficiency anemia secondary to blood loss (chronic) (principal); E78.5 Hyperlipidemia, unspecified; E03.9 Hypothyroidism, unspecified; E11.65 Type 2 diabetes mellitus with hyperglycemia
CPT/HCPCS: 36415; 80048; 82728; 83540; 85025

== ENCOUNTER → 2021-04-05 | Outpatient (CLI) | payer MEDICARE, OTHER ==
[2021-04-05 15:35] LABS: HEMOGLOBIN 7.1 gm/dl (14.0-17.5); RED BLOOD COUNT 2.44 M/UL (4.20-5.50); WHITE BLOOD COUNT 6.3 K/UL (4.5-11.0)
[2021-04-06 11:14] LABS: CREATININE, URINE 50.5 mg/dL (Not Estab.)
== END ==
LOC: LAB 15:04
PROVIDERS: Internal Medicine Nephrology
DX: K92.2 Gastrointestinal hemorrhage, unspecified (principal); N18.4 Chronic kidney disease, stage 4 (severe); R82.81 Pyuria
CPT/HCPCS: 36415; 80053; 81001; 82043; 82570; 82728; 83540; 83550; 85025; 85027

== ENCOUNTER → 2021-04-07 | Outpatient (CLI) | payer MEDICARE, OTHER | LOC: OPSV 07:47 | DX: D50.0 Iron deficiency anemia secondary to blood loss (chronic) (principal) | CPT/HCPCS: 36430; J7050 ==

== ENCOUNTER 2021-04-19 15:32 | Inpatient (IN) | payer MEDICARE, OTHER ==
[~2021-04-19] VITALS: Ht 180.3 cm; Wt 108.9 kg
[~2021-04-19 15:32] MED LIST changes: -CLOBETASOL TOP; -IPRAT-ALBUT 0.5-3 ML INH; -NORVASC2.5 MG PO; -PRESERVISION A1 EACH PO
[2021-04-19 16:35] LABS: WHITE BLOOD COUNT 4.5 K/UL (4.5-11.0)
[2021-04-19 16:48] LABS: RED BLOOD COUNT 2.33 M/UL (4.20-5.50)
[2021-04-19 16:51] LABS: HEMOGLOBIN 6.8 gm/dl (14.0-17.5)
[2021-04-19 17:48] LABS: BUN/CREATININE RATIO 17 (0-10)
[2021-04-20 03:30] LABS: HEMOGLOBIN 7.7 gm/dl (14.0-17.5); WHITE BLOOD COUNT 4.7 K/UL (4.5-11.0)
[2021-04-20 03:34] LABS: RED BLOOD COUNT 2.63 M/UL (4.20-5.50)
[2021-04-20] MEDS ORDERED: IPRAT-ALBUT 0.5-3 ML INH (10:02)
[2021-04-20] MEDS ORDERED: NORVASC2.5 MG PO (13:48)
[2021-04-20] MEDS ORDERED: CLOBETASOL TOP (13:54)
[2021-04-20] MEDS ORDERED: PRESERVISION A1 EACH PO (14:02)
== END 2021-04-20 16:30 | disposition home or self-care (01) | DRG 812 ==
LOC: ER1 15:32 → CDU 18:21
PROVIDERS: Emergency Medicine; Family Medicine; ADMIT Internal Medicine
PROC: 30233N1 Transfusion of Nonautologous Red Blood Cells into Peripheral Vein, Percutaneous Approach (ICD-10-PCS; principal; 2021-04-20)
DX: D50.0 Iron deficiency anemia secondary to blood loss (chronic) (principal); I13.0 Hypertensive heart and chronic kidney disease with heart failure and stage 1 through stage 4 chronic kidney disease, or unspecified chronic kidney disease; N18.4 Chronic kidney disease, stage 4 (severe); E11.22 Type 2 diabetes mellitus with diabetic chronic kidney disease; E78.5 Hyperlipidemia, unspecified; E03.9 Hypothyroidism, unspecified; Z20.822 Contact with and (suspected) exposure to COVID-19; K21.9 Gastro-esophageal reflux disease without esophagitis; M34.9 Systemic sclerosis, unspecified; F41.9 Anxiety disorder, unspecified; Z96.652 Presence of left artificial knee joint; I50.9 Heart failure, unspecified; H35.30 Unspecified macular degeneration; Z86.16 Personal history of COVID-19; Z98.41 Cataract extraction status, right eye; Z90.89 Acquired absence of other organs; Z95.5 Presence of coronary angioplasty implant and graft; Z88.8 Allergy status to other drugs, medicaments and biological substances; Z82.49 Family history of ischemic heart disease and other diseases of the circulatory system; Z83.3 Family history of diabetes mellitus; Z82.3 Family history of stroke; Z84.1 Family history of disorders of kidney and ureter; Z98.890 Other specified postprocedural states
CPT/HCPCS: 36415; 36430; 71045; 80048; 82550; 82553; 82728; 82962; 83540; 83550; 83605; 83874; 83880; 84484; 85014; 85018; 85025; 86850; 86900; 86901; 86920; 87040; 93005; 94640; 94664; 96365; 96374; 96375; 99285; G0378; J0456; J0696; J1439; J1940; J7030; P9016; U0002

== ENCOUNTER → 2021-04-19 | Outpatient (CLI) | payer MEDICARE, OTHER ==
[~2021-04-19] VITALS: Ht 180.3 cm; Wt 108.9 kg
[~2021-04-19] MED LIST changes: +CLOBETASOL TOP; -DRISDOL1250 MCG PO; +NORVASC2.5 MG PO; +PRESERVISION A1 EACH PO; +VITAMIN D31250 MCG PO
[2021-04-19 11:41] LABS: RED BLOOD COUNT 2.07 M/UL (4.20-5.50); WHITE BLOOD COUNT 4.5 K/UL (4.5-11.0)
[2021-04-19 12:06] LABS: HEMOGLOBIN 5.8 gm/dl (14.0-17.5)
== END ==
LOC: OPSV 10:24
PROVIDERS: Internal Medicine Nephrology
DX: D50.0 Iron deficiency anemia secondary to blood loss (chronic) (principal); D63.1 Anemia in chronic kidney disease; N18.4 Chronic kidney disease, stage 4 (severe)
CPT/HCPCS: 36415; 80048; 82728; 83540; 83550; 85025; 96365; J1439; J7030

== ENCOUNTER 2021-04-26 08:49 | Emergency (ER) | payer MEDICARE, OTHER ==
[~2021-04-26] VITALS: Ht 175.3 cm; Wt 108.9 kg
[~2021-04-26 08:49] MED LIST changes: -CEFDINIR300 MG PO
[2021-04-26 13:09] LABS: HEMOGLOBIN 7.7 gm/dl (14.0-17.5); RED BLOOD COUNT 2.57 M/UL (4.20-5.50); WHITE BLOOD COUNT 5.2 K/UL (4.5-11.0)
[2021-04-26 13:52] LABS: BUN/CREATININE RATIO 20 (0-10)
[2021-04-26] MEDS ORDERED: CEFDINIR300 MG PO (15:36)
== END 2021-04-26 20:56 | disposition home or self-care (01) ==
LOC: ER1 08:49
PROVIDERS: Physician Assistant
DX: J18.9 Pneumonia, unspecified organism (principal); K92.2 Gastrointestinal hemorrhage, unspecified; D64.9 Anemia, unspecified; N39.0 Urinary tract infection, site not specified; Z20.822 Contact with and (suspected) exposure to COVID-19; I12.9 Hypertensive chronic kidney disease with stage 1 through stage 4 chronic kidney disease, or unspecified chronic kidney disease; N18.9 Chronic kidney disease, unspecified; E78.5 Hyperlipidemia, unspecified; E11.22 Type 2 diabetes mellitus with diabetic chronic kidney disease; J45.909 Unspecified asthma, uncomplicated; E03.9 Hypothyroidism, unspecified; Z88.8 Allergy status to other drugs, medicaments and biological substances; Z79.899 Other long term (current) drug therapy
CPT/HCPCS: 36415; 36430; 71045; 80053; 80069; 81001; 82272; 82550; 82553; 82728; 82962; 83540; 83550; 83605; 83874; 83880; 84484; 85025; 86850; 86900; 86901; 86920; 87040; 87086; 93005; 96374; 99285; J1335; P9016; U0002

== ENCOUNTER → 2021-04-26 | Outpatient (CLI) | payer MEDICARE, OTHER ==
[~2021-04-26] MED LIST changes: +CEFDINIR300 MG PO; +CLOBETASOL TOP; +IPRAT-ALBUT 0.5-3 ML INH; +NORVASC2.5 MG PO; +PRESERVISION A1 EACH PO
[2021-04-26 09:20] LABS: HEMOGLOBIN 7.1 gm/dl (14.0-17.5); RED BLOOD COUNT 2.39 M/UL (4.20-5.50); WHITE BLOOD COUNT 5.3 K/UL (4.5-11.0)
[2021-04-27 08:13] LABS: FERRITIN 1092 ng/mL (30-400); IRON BIND.CAP.(TIBC) 219 ug/dL (250-450); IRON SATURATION 25 % (15-55); IRON, SERUM 54 ug/dL (38-169); UIBC 165 ug/dL (111-343)
== END ==
LOC: LAB 08:27
PROVIDERS: Internal Medicine Nephrology
DX: N18.4 Chronic kidney disease, stage 4 (severe) (principal); D50.0 Iron deficiency anemia secondary to blood loss (chronic); D51.0 Vitamin B12 deficiency anemia due to intrinsic factor deficiency
CPT/HCPCS: 36415; 80069; 82728; 83540; 83550; 85025

== ENCOUNTER → 2021-05-05 | Outpatient (CLI) | payer MEDICARE, OTHER ==
[~2021-05-05] MED LIST changes: +CEFDINIR300 MG PO
[2021-05-05 09:49] LABS: HEMOGLOBIN 8.1 gm/dl (14.0-17.5); RED BLOOD COUNT 2.68 M/UL (4.20-5.50); WHITE BLOOD COUNT 5.5 K/UL (4.5-11.0)
[2021-05-06 08:13] LABS: CALCIUM, SERUM 8.6 mg/dL (8.6-10.2); CREATININE, SERUM 2.97 mg/dL (0.76-1.27); POTASSIUM, SERUM 5.4 mmol/L (3.5-5.2)
== END ==
LOC: LAB 09:18
PROVIDERS: Internal Medicine
DX: D50.0 Iron deficiency anemia secondary to blood loss (chronic) (principal); E03.9 Hypothyroidism, unspecified; E78.5 Hyperlipidemia, unspecified
CPT/HCPCS: 36415; 80048; 82728; 85025

== ENCOUNTER → 2021-05-11 | Outpatient (CLI) | payer MEDICARE, OTHER ==
[~2021-05-11] VITALS: Ht 180.3 cm; Wt 108.9 kg
[2021-05-11 13:07] LABS: RED BLOOD COUNT 2.66 M/UL (4.20-5.50); WHITE BLOOD COUNT 6.6 K/UL (4.5-11.0)
== END ==
LOC: OPSV 05-10 11:00
PROVIDERS: Internal Medicine
DX: D50.0 Iron deficiency anemia secondary to blood loss (chronic) (principal); E78.5 Hyperlipidemia, unspecified; E03.9 Hypothyroidism, unspecified; D51.0 Vitamin B12 deficiency anemia due to intrinsic factor deficiency; E11.22 Type 2 diabetes mellitus with diabetic chronic kidney disease; N18.30 Chronic kidney disease, stage 3 unspecified
CPT/HCPCS: 36415; 80048; 82728; 83540; 83550; 85025; 96365; J1439; J7030

== ENCOUNTER → 2021-05-12 | Outpatient (CLI) | payer MEDICARE, OTHER | LOC: LAB 11:42 | PROVIDERS: Internal Medicine | DX: E87.5 Hyperkalemia (principal) | CPT/HCPCS: 36415; 80048 ==

== ENCOUNTER → 2021-05-18 | Outpatient (CLI) | payer MEDICARE, OTHER | LOC: EXRD 10:58 | DX: J18.9 Pneumonia, unspecified organism (principal); R06.02 Shortness of breath | CPT/HCPCS: 71046; 94060; 94729 ==

== ENCOUNTER → 2021-05-25 | Outpatient (CLI) | payer MEDICARE, OTHER ==
[2021-05-25 11:22] LABS: RED BLOOD COUNT 2.26 M/UL (4.20-5.50); WHITE BLOOD COUNT 6.6 K/UL (4.5-11.0)
== END ==
LOC: OPSV 10:00
PROVIDERS: Internal Medicine
DX: D50.0 Iron deficiency anemia secondary to blood loss (chronic) (principal); E78.5 Hyperlipidemia, unspecified; D51.0 Vitamin B12 deficiency anemia due to intrinsic factor deficiency; N18.30 Chronic kidney disease, stage 3 unspecified; E11.65 Type 2 diabetes mellitus with hyperglycemia; E11.22 Type 2 diabetes mellitus with diabetic chronic kidney disease
CPT/HCPCS: 36415; 36430; 82728; 83540; 83550; 85025; 86850; 86900; 86901; 86920; J7050; P9016

== ENCOUNTER → 2021-05-26 | Outpatient (CLI) | payer MEDICARE, OTHER | LOC: OPSV 08:00 | DX: D50.0 Iron deficiency anemia secondary to blood loss (chronic) (principal); D51.0 Vitamin B12 deficiency anemia due to intrinsic factor deficiency; E11.65 Type 2 diabetes mellitus with hyperglycemia; E11.22 Type 2 diabetes mellitus with diabetic chronic kidney disease; N18.30 Chronic kidney disease, stage 3 unspecified; E78.5 Hyperlipidemia, unspecified | CPT/HCPCS: 36430 ==

== ENCOUNTER → 2021-06-01 | Outpatient (CLI) | payer MEDICARE, OTHER ==
[~2021-06-01] VITALS: Ht 180.3 cm; Wt 108.9 kg
[2021-06-01 09:28] LABS: HEMOGLOBIN 8.1 gm/dl (14.0-17.5); RED BLOOD COUNT 2.72 M/UL (4.20-5.50); WHITE BLOOD COUNT 4.7 K/UL (4.5-11.0)
== END ==
LOC: OPSV 08:00
PROVIDERS: Internal Medicine
DX: D50.0 Iron deficiency anemia secondary to blood loss (chronic) (principal); N39.0 Urinary tract infection, site not specified; D51.0 Vitamin B12 deficiency anemia due to intrinsic factor deficiency; E11.22 Type 2 diabetes mellitus with diabetic chronic kidney disease; N18.30 Chronic kidney disease, stage 3 unspecified; D63.1 Anemia in chronic kidney disease; E11.65 Type 2 diabetes mellitus with hyperglycemia; E78.5 Hyperlipidemia, unspecified; R06.02 Shortness of breath; J90 Pleural effusion, not elsewhere classified
CPT/HCPCS: 71046; 81001; 82728; 83540; 83550; 85025; 86850; 86900; 86901; 87077; 87086; 87186; 96365; J1439; J7030

== ENCOUNTER → 2021-06-08 | Outpatient (CLI) | payer MEDICARE, OTHER ==
[2021-06-08 07:43] LABS: HEMOGLOBIN 7.1 gm/dl (14.0-17.5); RED BLOOD COUNT 2.34 M/UL (4.20-5.50); WHITE BLOOD COUNT 4.9 K/UL (4.5-11.0)
== END ==
LOC: OPSV 06:42
PROVIDERS: Internal Medicine
DX: D50.0 Iron deficiency anemia secondary to blood loss (chronic) (principal); E11.22 Type 2 diabetes mellitus with diabetic chronic kidney disease; N18.4 Chronic kidney disease, stage 4 (severe); E11.65 Type 2 diabetes mellitus with hyperglycemia; E78.5 Hyperlipidemia, unspecified; D51.0 Vitamin B12 deficiency anemia due to intrinsic factor deficiency
CPT/HCPCS: 36430; 82728; 83540; 83550; 85025; 86850; 86900; 86901; 86920; J7050; P9016

== ENCOUNTER → 2021-06-15 | Outpatient (CLI) | payer MEDICARE, OTHER ==
[~2021-06-15] MED LIST changes: +IBUPROFEN800 MG PO
[2021-06-15 08:18] LABS: RED BLOOD COUNT 2.85 M/UL (4.20-5.50); WHITE BLOOD COUNT 5.7 K/UL (4.5-11.0)
== END ==
LOC: OPSV 07:37
PROVIDERS: Internal Medicine
DX: D50.0 Iron deficiency anemia secondary to blood loss (chronic) (principal); E11.22 Type 2 diabetes mellitus with diabetic chronic kidney disease; N18.4 Chronic kidney disease, stage 4 (severe); E78.5 Hyperlipidemia, unspecified; D51.0 Vitamin B12 deficiency anemia due to intrinsic factor deficiency
CPT/HCPCS: 36415; 82728; 83540; 83550; 85025; 86850; 86900; 86901

== ENCOUNTER → 2021-06-16 | Day surgery (SDC) | payer MEDICARE, OTHER ==
[2021-06-16 08:04] LABS: HEMOGLOBIN 8.8 gm/dl (14.0-17.5); RED BLOOD COUNT 2.81 M/UL (4.20-5.50); WHITE BLOOD COUNT 5.4 K/UL (4.5-11.0)
== END | disposition home or self-care (01) ==
LOC: OR 07:06
PROVIDERS: Surgery
DX: I87.8 Other specified disorders of veins (principal); E11.22 Type 2 diabetes mellitus with diabetic chronic kidney disease; I12.9 Hypertensive chronic kidney disease with stage 1 through stage 4 chronic kidney disease, or unspecified chronic kidney disease; N18.4 Chronic kidney disease, stage 4 (severe); E11.42 Type 2 diabetes mellitus with diabetic polyneuropathy; E78.5 Hyperlipidemia, unspecified; E03.9 Hypothyroidism, unspecified; K21.9 Gastro-esophageal reflux disease without esophagitis; E11.36 Type 2 diabetes mellitus with diabetic cataract; H26.9 Unspecified cataract; Z20.822 Contact with and (suspected) exposure to COVID-19; Z96.652 Presence of left artificial knee joint; Z88.8 Allergy status to other drugs, medicaments and biological substances; Z72.89 Other problems related to lifestyle
CPT/HCPCS: 36415; 71045; 77001; 80048; 82962; 85027; C1769; C1788; J0690; J1100; J1642; J1644; J2001; J2405; J2704; J3010; J7040; J7120

== ENCOUNTER → 2021-06-22 | Outpatient (CLI) | payer MEDICARE, OTHER ==
[2021-06-22 08:57] LABS: HEMOGLOBIN 8.7 gm/dl (14.0-17.5); RED BLOOD COUNT 2.7 M/UL (4.20-5.50); WHITE BLOOD COUNT 5.1 K/UL (4.5-11.0)
== END ==
LOC: OPSV 08:00
PROVIDERS: Internal Medicine
DX: E11.22 Type 2 diabetes mellitus with diabetic chronic kidney disease (principal); N18.4 Chronic kidney disease, stage 4 (severe); E78.5 Hyperlipidemia, unspecified; K74.69 Other cirrhosis of liver; R14.0 Abdominal distension (gaseous); E11.65 Type 2 diabetes mellitus with hyperglycemia; D50.0 Iron deficiency anemia secondary to blood loss (chronic); D51.0 Vitamin B12 deficiency anemia due to intrinsic factor deficiency
CPT/HCPCS: 36591; 82728; 83540; 83550; 85025; 96365; J1439; J1642

== ENCOUNTER → 2021-06-24 | Outpatient (CLI) | payer MEDICARE, OTHER | LOC: EXRD 11:30 | DX: J90 Pleural effusion, not elsewhere classified (principal) | CPT/HCPCS: 71046 ==

== ENCOUNTER → 2021-06-28 | Outpatient (CLI) | payer MEDICARE, OTHER ==
[2021-06-28 08:26] LABS: RED BLOOD COUNT 1.98 M/UL (4.20-5.50); WHITE BLOOD COUNT 7.3 K/UL (4.5-11.0)
[2021-06-28 08:28] LABS: HEMOGLOBIN 6.4 gm/dl (14.0-17.5)
== END ==
LOC: OPSV 07:46
PROVIDERS: Internal Medicine Nephrology
DX: D50.0 Iron deficiency anemia secondary to blood loss (chronic) (principal); E11.22 Type 2 diabetes mellitus with diabetic chronic kidney disease; N18.4 Chronic kidney disease, stage 4 (severe); E78.5 Hyperlipidemia, unspecified; D51.0 Vitamin B12 deficiency anemia due to intrinsic factor deficiency
CPT/HCPCS: 36430; 82728; 83540; 83550; 85025; 86850; 86900; 86901; 86920; J7050; P9016

== ENCOUNTER → 2021-07-07 | Outpatient (CLI) | payer MEDICARE, OTHER ==
[~2021-07-07] VITALS: Ht 180.3 cm; Wt 108.9 kg
[2021-07-07 08:29] LABS: HEMOGLOBIN 9.6 gm/dl (14.0-17.5); RED BLOOD COUNT 3.09 M/UL (4.20-5.50)
== END ==
LOC: OPSV 07-05 08:00
PROVIDERS: Internal Medicine
DX: N18.4 Chronic kidney disease, stage 4 (severe) (principal); D63.1 Anemia in chronic kidney disease; E11.22 Type 2 diabetes mellitus with diabetic chronic kidney disease; E11.65 Type 2 diabetes mellitus with hyperglycemia; E78.5 Hyperlipidemia, unspecified; D50.0 Iron deficiency anemia secondary to blood loss (chronic); D51.0 Vitamin B12 deficiency anemia due to intrinsic factor deficiency
CPT/HCPCS: 36591; 82728; 83540; 83550; 85025; 96365; J1439; J1642

== ENCOUNTER → 2021-07-15 | Outpatient (CLI) | payer MEDICARE, OTHER ==
[2021-07-15 08:29] LABS: RED BLOOD COUNT 2.86 M/UL (4.20-5.50)
== END ==
LOC: OPSV 08:00
PROVIDERS: Internal Medicine
DX: E11.65 Type 2 diabetes mellitus with hyperglycemia (principal); E78.5 Hyperlipidemia, unspecified; D51.0 Vitamin B12 deficiency anemia due to intrinsic factor deficiency; E11.22 Type 2 diabetes mellitus with diabetic chronic kidney disease; N18.30 Chronic kidney disease, stage 3 unspecified; D63.1 Anemia in chronic kidney disease; D50.0 Iron deficiency anemia secondary to blood loss (chronic)
CPT/HCPCS: 36591; 82728; 83540; 83550; 85025; J1642

== ENCOUNTER → 2021-07-20 | Outpatient (CLI) | payer MEDICARE, OTHER ==
[~2021-07-20] VITALS: Ht 180.3 cm; Wt 108.9 kg
[2021-07-20 09:22] LABS: HEMOGLOBIN 8.6 gm/dl (14.0-17.5); RED BLOOD COUNT 2.79 M/UL (4.20-5.50); WHITE BLOOD COUNT 6.9 K/UL (4.5-11.0)
== END ==
LOC: OPSV 08:00
PROVIDERS: Internal Medicine
DX: E11.22 Type 2 diabetes mellitus with diabetic chronic kidney disease (principal); N18.4 Chronic kidney disease, stage 4 (severe); D50.0 Iron deficiency anemia secondary to blood loss (chronic); E78.5 Hyperlipidemia, unspecified; D51.0 Vitamin B12 deficiency anemia due to intrinsic factor deficiency
CPT/HCPCS: 82728; 83540; 83550; 85027; 96365; J1439; J1642

== ENCOUNTER → 2021-07-27 | Outpatient (CLI) | payer MEDICARE, OTHER ==
[~2021-07-27] VITALS: Ht 180.3 cm; Wt 108.9 kg
[2021-07-27 08:42] LABS: RED BLOOD COUNT 2.52 M/UL (4.20-5.50)
== END ==
LOC: OPSV 08:00
PROVIDERS: Internal Medicine
DX: D50.0 Iron deficiency anemia secondary to blood loss (chronic) (principal); N18.4 Chronic kidney disease, stage 4 (severe); E78.5 Hyperlipidemia, unspecified; D51.0 Vitamin B12 deficiency anemia due to intrinsic factor deficiency; E11.65 Type 2 diabetes mellitus with hyperglycemia
CPT/HCPCS: 36591; 82728; 83540; 83550; 85025; J1642

== ENCOUNTER → 2021-08-04 | Outpatient (CLI) | payer MEDICARE, OTHER | LOC: KOH-I 10:19 | DX: T84.84XA Pain due to internal orthopedic prosthetic devices, implants and grafts, initial encounter (principal); Z96.652 Presence of left artificial knee joint | CPT/HCPCS: 73700 ==

== ENCOUNTER → 2021-08-10 | Outpatient (CLI) | payer MEDICARE, OTHER ==
[~2021-08-10] VITALS: Ht 180.3 cm; Wt 108.9 kg
[2021-08-10 09:03] LABS: HEMOGLOBIN 10.7 gm/dl (14.0-17.5); RED BLOOD COUNT 3.53 M/UL (4.20-5.50); WHITE BLOOD COUNT 4.9 K/UL (4.5-11.0)
== END ==
LOC: OPSV 08:00
PROVIDERS: Internal Medicine Nephrology
DX: D50.0 Iron deficiency anemia secondary to blood loss (chronic) (principal); D51.0 Vitamin B12 deficiency anemia due to intrinsic factor deficiency; E11.22 Type 2 diabetes mellitus with diabetic chronic kidney disease; N18.4 Chronic kidney disease, stage 4 (severe); E78.5 Hyperlipidemia, unspecified
CPT/HCPCS: 36591; 82728; 83540; 83550; 85027; 96365; J1439; J1642; J7030

== ENCOUNTER → 2021-08-17 | Outpatient (CLI) | payer MEDICARE, OTHER ==
[~2021-08-17] VITALS: Ht 180.3 cm; Wt 108.9 kg
[2021-08-17 08:07] LABS: RED BLOOD COUNT 2.84 M/UL (4.20-5.50); WHITE BLOOD COUNT 7.1 K/UL (4.5-11.0)
[2021-08-17 08:12] LABS: HEMOGLOBIN 8.7 gm/dl (14.0-17.5)
== END ==
LOC: OPSV 07:27
PROVIDERS: Internal Medicine
DX: D50.0 Iron deficiency anemia secondary to blood loss (chronic) (principal); E78.5 Hyperlipidemia, unspecified; D51.0 Vitamin B12 deficiency anemia due to intrinsic factor deficiency; E11.22 Type 2 diabetes mellitus with diabetic chronic kidney disease; N18.30 Chronic kidney disease, stage 3 unspecified; E11.65 Type 2 diabetes mellitus with hyperglycemia
CPT/HCPCS: 36591; 82728; 83540; 83550; 85025; J1642

== ENCOUNTER → 2021-08-24 | Outpatient (CLI) | payer MEDICARE, OTHER ==
[2021-08-24 08:20] LABS: HEMOGLOBIN 8.4 gm/dl (14.0-17.5); RED BLOOD COUNT 2.73 M/UL (4.20-5.50); WHITE BLOOD COUNT 7.1 K/UL (4.5-11.0)
== END ==
LOC: OPSV 07:45
PROVIDERS: Internal Medicine
DX: D51.0 Vitamin B12 deficiency anemia due to intrinsic factor deficiency (principal); D50.0 Iron deficiency anemia secondary to blood loss (chronic); E11.22 Type 2 diabetes mellitus with diabetic chronic kidney disease; N18.30 Chronic kidney disease, stage 3 unspecified; D63.1 Anemia in chronic kidney disease; E78.5 Hyperlipidemia, unspecified
CPT/HCPCS: 36415; 82728; 83540; 83550; 85025; J1642

== ENCOUNTER → 2021-08-31 | Outpatient (CLI) | payer MEDICARE, OTHER ==
[~2021-08-31] VITALS: Ht 180.3 cm; Wt 108.9 kg
[2021-08-31 08:34] LABS: HEMOGLOBIN 7.8 gm/dl (14.0-17.5); RED BLOOD COUNT 2.5 M/UL (4.20-5.50); WHITE BLOOD COUNT 6.2 K/UL (4.5-11.0)
== END ==
LOC: OPSV 08:03
PROVIDERS: Internal Medicine
DX: D50.0 Iron deficiency anemia secondary to blood loss (chronic) (principal); D51.0 Vitamin B12 deficiency anemia due to intrinsic factor deficiency; E78.5 Hyperlipidemia, unspecified; E11.22 Type 2 diabetes mellitus with diabetic chronic kidney disease; N18.4 Chronic kidney disease, stage 4 (severe)
CPT/HCPCS: 36430; 82728; 83540; 83550; 85025; 86850; 86900; 86901; 86920; J1642; P9016

== ENCOUNTER → 2021-09-07 | Outpatient (CLI) | payer MEDICARE, OTHER ==
[~2021-09-07] VITALS: Ht 180.3 cm; Wt 108.9 kg
[2021-09-07 08:45] LABS: HEMOGLOBIN 9.4 gm/dl (14.0-17.5); RED BLOOD COUNT 3.08 M/UL (4.20-5.50); WHITE BLOOD COUNT 5.7 K/UL (4.5-11.0)
== END ==
LOC: OPSV 07:39
PROVIDERS: Internal Medicine Nephrology
DX: D50.0 Iron deficiency anemia secondary to blood loss (chronic) (principal); E11.22 Type 2 diabetes mellitus with diabetic chronic kidney disease; N18.30 Chronic kidney disease, stage 3 unspecified; E78.5 Hyperlipidemia, unspecified; E11.65 Type 2 diabetes mellitus with hyperglycemia; D51.0 Vitamin B12 deficiency anemia due to intrinsic factor deficiency
CPT/HCPCS: 36591; 82728; 83540; 83550; 85025; J1642

== ENCOUNTER → 2021-09-14 | Outpatient (CLI) | payer MEDICARE, OTHER ==
[~2021-09-14] VITALS: Ht 180.3 cm; Wt 108.9 kg
[2021-09-14 08:34] LABS: HEMOGLOBIN 8.6 gm/dl (14.0-17.5); RED BLOOD COUNT 2.8 M/UL (4.20-5.50)
== END ==
LOC: OPSV 07:55
PROVIDERS: Internal Medicine
DX: D50.0 Iron deficiency anemia secondary to blood loss (chronic) (principal); E78.5 Hyperlipidemia, unspecified; D51.0 Vitamin B12 deficiency anemia due to intrinsic factor deficiency; E11.22 Type 2 diabetes mellitus with diabetic chronic kidney disease; N18.4 Chronic kidney disease, stage 4 (severe)
CPT/HCPCS: 36591; 82728; 83540; 83550; 85025; J1642

== ENCOUNTER → 2021-09-21 | Outpatient (CLI) | payer MEDICARE, OTHER ==
[~2021-09-21] VITALS: Ht 180.3 cm; Wt 108.9 kg
[2021-09-21 08:53] LABS: HEMOGLOBIN 7.2 gm/dl (14.0-17.5); RED BLOOD COUNT 2.35 M/UL (4.20-5.50); WHITE BLOOD COUNT 5.3 K/UL (4.5-11.0)
== END ==
LOC: OPSV 07:52
PROVIDERS: Internal Medicine
DX: D50.0 Iron deficiency anemia secondary to blood loss (chronic) (principal); E11.22 Type 2 diabetes mellitus with diabetic chronic kidney disease; N18.4 Chronic kidney disease, stage 4 (severe); E78.5 Hyperlipidemia, unspecified; D51.0 Vitamin B12 deficiency anemia due to intrinsic factor deficiency; E11.65 Type 2 diabetes mellitus with hyperglycemia
CPT/HCPCS: 36430; 82728; 83540; 83550; 85025; 86850; 86900; 86901; 86920; J1642; J7050; P9016

== ENCOUNTER → 2021-09-28 | Outpatient (CLI) | payer MEDICARE, OTHER ==
[~2021-09-28] VITALS: Ht 180.3 cm; Wt 108.9 kg
[2021-09-28 08:41] LABS: HEMOGLOBIN 8.5 gm/dl (14.0-17.5); RED BLOOD COUNT 2.87 M/UL (4.20-5.50)
== END ==
LOC: OPSV 08:00
PROVIDERS: Internal Medicine
DX: D50.0 Iron deficiency anemia secondary to blood loss (chronic) (principal); E78.5 Hyperlipidemia, unspecified; E11.65 Type 2 diabetes mellitus with hyperglycemia
CPT/HCPCS: 36591; 82728; 83540; 83550; 85025; 96365; J1439; J1642; J7030

== ENCOUNTER → 2021-10-05 | Outpatient (CLI) | payer MEDICARE, OTHER ==
[~2021-10-05] VITALS: Ht 180.3 cm; Wt 108.9 kg
[2021-10-05 08:48] LABS: HEMOGLOBIN 8.6 gm/dl (14.0-17.5); RED BLOOD COUNT 2.76 M/UL (4.20-5.50); WHITE BLOOD COUNT 6.9 K/UL (4.5-11.0)
== END ==
LOC: OPSV 08:00
PROVIDERS: Internal Medicine
DX: D50.0 Iron deficiency anemia secondary to blood loss (chronic) (principal); N18.4 Chronic kidney disease, stage 4 (severe)
CPT/HCPCS: 36591; 82728; 83540; 83550; 85025; J1642

== ENCOUNTER → 2021-10-19 | Outpatient (CLI) | payer MEDICARE, OTHER ==
[~2021-10-19] VITALS: Ht 180.3 cm; Wt 108.9 kg
[2021-10-19 07:47] LABS: HEMOGLOBIN 7.2 gm/dl (14.0-17.5); RED BLOOD COUNT 2.31 M/UL (4.20-5.50); WHITE BLOOD COUNT 4.5 K/UL (4.5-11.0)
[2021-10-20 11:14] LABS: FERRITIN 477 ng/mL (30-400)
[2021-10-20 12:14] LABS: IRON BIND.CAP.(TIBC) 228 ug/dL (250-450); IRON SATURATION 23 % (15-55); IRON, SERUM 53 ug/dL (38-169); UIBC 175 ug/dL (111-343)
== END ==
LOC: OPSV 07:04
PROVIDERS: Internal Medicine; Internal Medicine Nephrology
DX: D50.0 Iron deficiency anemia secondary to blood loss (chronic) (principal); D51.0 Vitamin B12 deficiency anemia due to intrinsic factor deficiency; E78.5 Hyperlipidemia, unspecified; E11.22 Type 2 diabetes mellitus with diabetic chronic kidney disease; N18.30 Chronic kidney disease, stage 3 unspecified; E11.65 Type 2 diabetes mellitus with hyperglycemia
CPT/HCPCS: 36430; 36591; 82728; 83540; 83550; 85025; 86850; 86900; 86901; 86920; J1642; P9016

== ENCOUNTER → 2021-10-26 | Outpatient (CLI) | payer MEDICARE, OTHER ==
[~2021-10-26] VITALS: Ht 180.3 cm; Wt 108.9 kg
[2021-10-26 08:29] LABS: HEMOGLOBIN 8.9 gm/dl (14.0-17.5); RED BLOOD COUNT 2.91 M/UL (4.20-5.50); WHITE BLOOD COUNT 4.9 K/UL (4.5-11.0)
== END ==
LOC: OPSV 07:47
PROVIDERS: Internal Medicine
DX: E78.5 Hyperlipidemia, unspecified (principal); E11.22 Type 2 diabetes mellitus with diabetic chronic kidney disease; N18.30 Chronic kidney disease, stage 3 unspecified; D50.0 Iron deficiency anemia secondary to blood loss (chronic); D51.0 Vitamin B12 deficiency anemia due to intrinsic factor deficiency
CPT/HCPCS: 36591; 82728; 83540; 83550; 85025; J1642

== ENCOUNTER → 2021-11-02 | Outpatient (CLI) | payer MEDICARE, OTHER ==
[~2021-11-02] VITALS: Ht 180.3 cm; Wt 108.9 kg
[2021-11-02 08:28] LABS: HEMOGLOBIN 8.5 gm/dl (14.0-17.5); RED BLOOD COUNT 2.78 M/UL (4.20-5.50); WHITE BLOOD COUNT 5.2 K/UL (4.5-11.0)
== END ==
LOC: OPSV 07:57
PROVIDERS: Internal Medicine
DX: D50.0 Iron deficiency anemia secondary to blood loss (chronic) (principal); E11.22 Type 2 diabetes mellitus with diabetic chronic kidney disease; N18.4 Chronic kidney disease, stage 4 (severe); E11.65 Type 2 diabetes mellitus with hyperglycemia; E78.5 Hyperlipidemia, unspecified; D51.0 Vitamin B12 deficiency anemia due to intrinsic factor deficiency
CPT/HCPCS: 36591; 82728; 83540; 83550; 85025

== ENCOUNTER → 2021-11-16 | Outpatient (CLI) | payer MEDICARE, OTHER ==
[~2021-11-16] VITALS: Ht 180.3 cm; Wt 108.9 kg
[2021-11-16 08:15] LABS: HEMOGLOBIN 9.7 gm/dl (14.0-17.5); RED BLOOD COUNT 3.19 M/UL (4.20-5.50); WHITE BLOOD COUNT 5.2 K/UL (4.5-11.0)
== END ==
LOC: OPSV 07:47
PROVIDERS: Internal Medicine
DX: D50.0 Iron deficiency anemia secondary to blood loss (chronic) (principal); E78.5 Hyperlipidemia, unspecified; N18.30 Chronic kidney disease, stage 3 unspecified; E11.22 Type 2 diabetes mellitus with diabetic chronic kidney disease
CPT/HCPCS: 36591; 82728; 83540; 83550; 85025; J1642

== ENCOUNTER → 2021-11-23 | Outpatient (CLI) | payer MEDICARE, OTHER ==
[~2021-11-23] VITALS: Ht 180.3 cm; Wt 108.9 kg
[2021-11-23 08:52] LABS: HEMOGLOBIN 8.8 gm/dl (14.0-17.5); RED BLOOD COUNT 2.9 M/UL (4.20-5.50); WHITE BLOOD COUNT 6.5 K/UL (4.5-11.0)
== END ==
LOC: OPSV 08:00
PROVIDERS: Internal Medicine Nephrology
DX: D50.0 Iron deficiency anemia secondary to blood loss (chronic) (principal); E78.5 Hyperlipidemia, unspecified; D51.0 Vitamin B12 deficiency anemia due to intrinsic factor deficiency; E11.22 Type 2 diabetes mellitus with diabetic chronic kidney disease; N18.30 Chronic kidney disease, stage 3 unspecified
CPT/HCPCS: 36591; 82728; 83540; 83550; 85027; J1642

== ENCOUNTER → 2021-11-30 | Outpatient (CLI) | payer MEDICARE, OTHER ==
[~2021-11-30] VITALS: Ht 180.3 cm; Wt 108.9 kg
[2021-11-30 08:32] LABS: HEMOGLOBIN 8.1 gm/dl (14.0-17.5); RED BLOOD COUNT 2.67 M/UL (4.20-5.50)
== END ==
LOC: OPSV 08:00
PROVIDERS: Internal Medicine
DX: E11.22 Type 2 diabetes mellitus with diabetic chronic kidney disease (principal); N18.30 Chronic kidney disease, stage 3 unspecified; D63.1 Anemia in chronic kidney disease; E11.65 Type 2 diabetes mellitus with hyperglycemia; E78.5 Hyperlipidemia, unspecified; D50.0 Iron deficiency anemia secondary to blood loss (chronic); D51.0 Vitamin B12 deficiency anemia due to intrinsic factor deficiency
CPT/HCPCS: 36591; 82728; 83540; 83550; 85025; 96365; J1439; J1642; J7030

== ENCOUNTER → 2021-12-07 | Outpatient (CLI) | payer MEDICARE, OTHER ==
[~2021-12-07] VITALS: Ht 180.3 cm; Wt 108.9 kg
[2021-12-07 08:29] LABS: HEMOGLOBIN 8.5 gm/dl (14.0-17.5); RED BLOOD COUNT 2.74 M/UL (4.20-5.50)
== END ==
LOC: OPSV 07:50
PROVIDERS: Internal Medicine Nephrology
DX: E78.5 Hyperlipidemia, unspecified (principal); D50.0 Iron deficiency anemia secondary to blood loss (chronic); D51.0 Vitamin B12 deficiency anemia due to intrinsic factor deficiency; N18.30 Chronic kidney disease, stage 3 unspecified; E11.65 Type 2 diabetes mellitus with hyperglycemia; E11.22 Type 2 diabetes mellitus with diabetic chronic kidney disease
CPT/HCPCS: 36591; 82728; 83540; 83550; 85027; J1642

== ENCOUNTER → 2021-12-14 | Outpatient (CLI) | payer MEDICARE, OTHER ==
[~2021-12-14] VITALS: Ht 180.3 cm; Wt 108.9 kg
[2021-12-14 08:39] LABS: HEMOGLOBIN 7.7 gm/dl (14.0-17.5); RED BLOOD COUNT 2.48 M/UL (4.20-5.50); WHITE BLOOD COUNT 5.8 K/UL (4.5-11.0)
== END ==
LOC: OPSV 07:49
PROVIDERS: Internal Medicine Nephrology
DX: D50.0 Iron deficiency anemia secondary to blood loss (chronic) (principal); E11.22 Type 2 diabetes mellitus with diabetic chronic kidney disease; N18.4 Chronic kidney disease, stage 4 (severe); E11.65 Type 2 diabetes mellitus with hyperglycemia; E78.5 Hyperlipidemia, unspecified; D51.0 Vitamin B12 deficiency anemia due to intrinsic factor deficiency
CPT/HCPCS: 36430; 36591; 82728; 83540; 83550; 85027; 86850; 86900; 86901; 86920; J1642; J7050; P9016

== ENCOUNTER → 2021-12-29 | Outpatient (CLI) | payer MEDICARE, OTHER ==
[~2021-12-29] VITALS: Ht 180.3 cm; Wt 108.9 kg
[2021-12-29 08:09] LABS: HEMOGLOBIN 7.8 gm/dl (14.0-17.5); RED BLOOD COUNT 2.51 M/UL (4.20-5.50); WHITE BLOOD COUNT 5.4 K/UL (4.5-11.0)
== END ==
LOC: OPSV 07:38
PROVIDERS: Internal Medicine; Internal Medicine Nephrology
DX: D50.0 Iron deficiency anemia secondary to blood loss (chronic) (principal)
CPT/HCPCS: 36430; 36591; 80048; 82728; 83540; 83550; 85025; 86850; 86900; 86901; 86920; J1642; J7050; P9016

== ENCOUNTER → 2022-01-04 | Outpatient (CLI) | payer MEDICARE, OTHER ==
[~2022-01-04] VITALS: Ht 180.3 cm; Wt 108.9 kg
[2022-01-04 09:08] LABS: HEMOGLOBIN 9.6 gm/dl (14.0-17.5); RED BLOOD COUNT 3.17 M/UL (4.20-5.50); WHITE BLOOD COUNT 6.4 K/UL (4.5-11.0)
== END ==
LOC: OPSV 08:02
PROVIDERS: Internal Medicine; Internal Medicine Nephrology
DX: E11.22 Type 2 diabetes mellitus with diabetic chronic kidney disease (principal); N18.4 Chronic kidney disease, stage 4 (severe); D63.1 Anemia in chronic kidney disease; E78.5 Hyperlipidemia, unspecified
CPT/HCPCS: 36591; 80048; 82728; 83540; 83550; 85025; 96365; J1439; J1642

== ENCOUNTER → 2022-01-11 | Outpatient (CLI) | payer MEDICARE, OTHER ==
[~2022-01-11] VITALS: Ht 180.3 cm; Wt 108.9 kg
[2022-01-11 09:08] LABS: HEMOGLOBIN 8.3 gm/dl (14.0-17.5); RED BLOOD COUNT 2.7 M/UL (4.20-5.50); WHITE BLOOD COUNT 6.5 K/UL (4.5-11.0)
== END ==
LOC: OPSV 08:00
PROVIDERS: Internal Medicine
DX: D50.0 Iron deficiency anemia secondary to blood loss (chronic) (principal); E11.22 Type 2 diabetes mellitus with diabetic chronic kidney disease; N18.4 Chronic kidney disease, stage 4 (severe); E11.65 Type 2 diabetes mellitus with hyperglycemia; E78.5 Hyperlipidemia, unspecified; D51.0 Vitamin B12 deficiency anemia due to intrinsic factor deficiency
CPT/HCPCS: 36591; 82728; 83540; 83550; 85025; 96365; J1439; J1642

== ENCOUNTER → 2022-01-18 | Outpatient (CLI) | payer MEDICARE, OTHER ==
[2022-01-18 08:37] LABS: HEMOGLOBIN 8.2 gm/dl (14.0-17.5); RED BLOOD COUNT 2.62 M/UL (4.20-5.50); WHITE BLOOD COUNT 6.7 K/UL (4.5-11.0)
[2022-01-19 08:13] LABS: FERRITIN 955 ng/mL (30-400); IRON BIND.CAP.(TIBC) 198 ug/dL (250-450); IRON SATURATION 28 % (15-55); IRON, SERUM 56 ug/dL (38-169); UIBC 142 ug/dL (111-343)
== END ==
LOC: OPSV 08:00
PROVIDERS: Internal Medicine; Internal Medicine Nephrology
DX: D50.0 Iron deficiency anemia secondary to blood loss (chronic) (principal); D51.0 Vitamin B12 deficiency anemia due to intrinsic factor deficiency; E11.22 Type 2 diabetes mellitus with diabetic chronic kidney disease; N18.4 Chronic kidney disease, stage 4 (severe); E11.65 Type 2 diabetes mellitus with hyperglycemia; E78.5 Hyperlipidemia, unspecified
CPT/HCPCS: 36591; 82728; 83540; 83550; 85025; J1642